=== PATIENT | female | born 1955 | race Caucasian/White ===

== ENCOUNTER 2016-05-05 14:58 | Emergency (ER) | payer BC ==
[2016-05-05 15:07] VITALS: BP 124/64
--- NOTE | 2016-05-09 09:05 | ED ---
Throat Pain/Nasal Congestion - HPI Summary HPI Summary: Pt here w/ Rt eye discomfort since yesterday. Was working with wood and a bin of wind/sawdust was blown into her face. Has had irritation here since and FB sensation w/ scratching. Watery w/ mild redness. Feels better when upper eyelid is pulled away from eye. Denies change in vision, nausea. Does not wear contact lenses and no other sx to report. Not sure if tetanus is UTD but does not want vaccine today regardless - states she will check w/ her PCP and understands the risks/benefits of not receiving this. - History of Current Complaint Chief Complaint: EDEyeProblem Time Seen by Provider: 05/05/16 15:16 Hx Obtained From: Patient, Family/Technical Support Associate - partner - Allergies/Home Medications Allergies/Adverse Reactions: Allergies Allergy/AdvReac Type Severity Reaction Status Date / Time dairy Allergy Unknown Unknown Uncoded 11/01/14 15:45 Reaction Details wheat Allergy Unknown Unknown Uncoded 11/01/14 15:45 Reaction Details PMH/Surg Hx/FS Hx/Imm Hx Previously Healthy: Yes Endocrine/Hematology History: Denies: Hx Diabetes Cardiovascular History: Reports: Hx Valvular Heart Disease Denies: Hx Angina, Hx Coronary Artery Disease, Hx Hypercholesterolemia, Hx Hypertension, Hx Myocardial Infarction Respiratory History: Denies: Hx Asthma, Hx Chronic Obstructive Pulmonary Disease (COPD) History: Denies: Hx Renal Disease Sensory History: Reports: Hx Contacts or Glasses - GLASSES Opthamlomology History: Reports: Hx Contacts or Glasses - GLASSES - Surgical History Surgery Procedure, Year, and Place: , right hand surgery Infectious Disease History: No Infectious Disease History: Denies: Traveled Outside the [place] in Last 30 Days - Family History Known Family History: Positive: None - Social History Occupation: Employed Full-time Lives: With Family Alcohol Use: Rare Hx Substance Use: No Substance Use Type: Reports: None Hx Tobacco Use: No Smoking Status (MU): Never Smoked Tobacco Review of Systems Eyes: Other - see HPI Negative: Sore Throat, Ear Ache, Nasal Discharge Negative: Chest Pain Negative: Shortness Of Breath Positive: no symptoms reported Negative: Headache Psychological: Normal All Other Systems Reviewed And Are Negative: Yes Physical Exam Triage Information Reviewed: Yes Vital Signs On Initial Exam: Initial Vitals Temp Pulse Resp BP Pulse Ox 98 F 70 17 124/64 99 05/05/16 15:03 05/05/16 15:03 05/05/16 15:03 05/05/16 15:03 05/05/16 15:03 Vital Signs Reviewed: Yes Appearance: Positive: Well-Appearing, Pain Distress - Rt eye irritation - pt is blinking and appears uncomfortable Skin: Positive: Warm, Dry - no erythema/lesions of eyelid here/face/scalp Head/Face: Positive: Normal Head/Face Inspection - NTTP, no edema Eyes: Positive: EOMI, KRISTOPHER, Conjunctiva Inflammed - mild, Discharge - watery, Other: - see procedure for details ENT: Positive: Normal ENT inspection, Hearing grossly normal, Pharynx normal. Negative: Nasal congestion, Nasal drainage Neck: Positive: Supple, Nontender Respiratory/Lung Sounds: Positive: Breath Sounds Present Cardiovascular: Positive: Normal, RRR Musculoskeletal: Positive: Normal, Strength/ROM Intact Neurological: Positive: Normal, Sensory/Motor Intact, Alert, Oriented to Person Place, Time, CN Intact II-III Psychiatric: Positive: Normal Procedures - Eye Procedure Alcaine Drops Administered: Yes - fluoresceine exam neg for abrasion/laceration/ ulcer Eye FB Removal: removal w/ cotton swab - 2mm piece of sawdust removed from Rt upper eyelid Eye Irrigated w/ Saline (ccs): 2 - no Siedel's sign; pt tolerated well Diagnostics - Vital Signs Vital Signs Temp Pulse Resp BP Pulse Ox 05/05/16 15:03 98 F 70 17 124/64 99 - Laboratory Lab Statement: Any lab studies that have been ordered have been reviewed, and results considered in the medical decision making process. Re-Evaluation - Re-Evaluation First Eval Change: Improved EENT Course/Dx - Diagnoses Provider Diagnoses: Foreign body of eyelid, right Discharge - Discharge Plan Condition: Stable Disposition: HOME Prescriptions: Polymyx/Trimethoprim OPTH* [Polytrim OPHTH*] 1 drop RIGHT EYE Q3H #1 btl Patient Education Materials: Eye Foreign Body (ED) Referrals: Khadra Gonzalez MD [Primary Care Provider] - Additional Instructions: Your exam today was positive for a foreign body in your Right eye - this was removed and no abrasion was identified. Use saline eye wash 3-6 x day until symptom free. Antibiotic eye drops were prescribed in the event your eye is worse tomorrow. If so, call Dr. Mcarthur to schedule a follow-up eye appointment. DO NOT USE ANTIBIOTIC EYE DROP WITH RESTASIS UNLESS OTHERWISE SPECIFIED. *If you have acute pain, change in vision, headache, fever, return to ED
== END 2016-05-05 17:14 | disposition home or self-care (01) ==
LOC: ED 14:58
DX: T15.11XA Foreign body in conjunctival sac, right eye, initial encounter (principal); X58.XXXA Exposure to other specified factors, initial encounter; Y92.9 Unspecified place or not applicable; Y93.89 Activity, other specified
CPT/HCPCS: 67938; 99282